=== PATIENT | female | born 1990 | race Caucasian/White ===

== ENCOUNTER 2018-01-28 13:36 | Emergency (ER) | payer OTHER ==
[~2018-01-28] VITALS: Ht 160 cm; Wt 56.7 kg
== END 2018-01-28 19:07 | disposition home or self-care (01) ==
LOC: ER 13:36
DX: K52.89 Other specified noninfective gastroenteritis and colitis (principal)

== ENCOUNTER 2023-03-12 09:52 | Emergency (ER) | payer OTHER ==
[~2023-03-12] VITALS: Ht 152.4 cm; Wt 68.0 kg
[2023-03-12] MEDS ORDERED: VALTREX1000 MG (10:05)
[2023-03-12] MEDS ORDERED: MACROBID 100 M100 MG PO (14:49)
[2023-03-12] MEDS ORDERED: BUTALB-ASPIRIN1 EACH PO (14:51)
[2023-03-12] MEDS ORDERED: TENCON 50-3251 EACH PO (14:52)
== END 2023-03-12 15:04 | disposition home or self-care (01) ==
LOC: ER 09:52
DX: G43.809 Other migraine, not intractable, without status migrainosus (principal); Z33.1 Pregnant state, incidental

== ENCOUNTER 2023-05-04 21:06 | Inpatient (IN) | payer OTHER ==
[~2023-05-04] VITALS: Ht 157.5 cm; Wt 67.6 kg
[~2023-05-04 21:06] MED LIST: BUTALB-ASPIRIN1 EACH PO; MACROBID 100 M100 MG PO; TENCON 50-3251 EACH PO; VALTREX1000 MG
[2023-05-04] MEDS ORDERED: PRENATAL + DHA1 EAC1 (22:52)
== END 2023-05-05 09:48 | disposition home or self-care (01) | DRG 833 ==
LOC: LDR 21:06
PROVIDERS: ADMIT Obstetrics & Gynecology; ATTEND Obstetrics & Gynecology
PROC: BY4FZZZ Ultrasonography of Third Trimester, Single Fetus (ICD-10-PCS; principal; 2023-05-04)
PROC: 4A1HXCZ Monitoring of Products of Conception, Cardiac Rate, External Approach (ICD-10-PCS; 2023-05-04)
DX: O21.8 Other vomiting complicating pregnancy (principal); Z3A.34 34 weeks gestation of pregnancy; Z20.822 Contact with and (suspected) exposure to COVID-19

== ENCOUNTER 2025-09-11 15:08 | Emergency (ER) | payer OTHER ==
[~2025-09-11] VITALS: Ht 160 cm; Wt 69.9 kg
[~2025-09-11 15:08] MED LIST changes: +PHENERGAN25 MG PO; +PRENATAL + DHA1 EAC1
[2025-09-11 16:08] VITALS: BP 101/67; O2SAT 100
[2025-09-11] MEDS ORDERED: ACETAMINOPHEN 500 MG GEL..CAP PO ONE (17:00)
[2025-09-11] MEDS ORDERED: FAMOTIDINE/PF 20 MG in 0.9 % SODIUM CHLORIDE 8 ML IV PUSH ONE (17:00)
[2025-09-11] MEDS ORDERED: RINGERS SOLUTION,LACTATED 1,000 ML IV SCH (17:00)
[2025-09-11] MEDS ORDERED: ACETAMINOPHEN650 M2 PO (20:03)
== END 2025-09-11 20:30 | disposition home or self-care (01) ==
LOC: ER 15:09
DX: O26.891 Other specified pregnancy related conditions, first trimester (principal); Z3A.09 9 weeks gestation of pregnancy; R10.21 Pelvic and perineal pain right side; V43.52XA Car driver injured in collision with other type car in traffic accident, initial encounter; Y93.89 Activity, other specified; Y92.413 State road as the place of occurrence of the external cause